=== PATIENT | male | born 1960 | race Two or more races ===

== ENCOUNTER 2018-02-07 11:28 | Outpatient (CLI) | payer OTHER | END 2018-02-07 11:42 | disposition home or self-care (01) | LOC: RAD 11:28 | DX: M05.29 Rheumatoid vasculitis with rheumatoid arthritis of multiple sites (principal); M15.0 Primary generalized (osteo)arthritis; M15.8 Other polyosteoarthritis; M20.5X1 Other deformities of toe(s) (acquired), right foot; M20.5X2 Other deformities of toe(s) (acquired), left foot ==

== ENCOUNTER 2021-07-23 09:01 | Outpatient (CLI) | payer OTHER | END 2021-07-23 09:02 | disposition home or self-care (01) | LOC: NUCLEAR 09:01 | PROVIDERS: ATTEND Internal Medicine Infectious Disease | DX: M81.0 Age-related osteoporosis without current pathological fracture (principal) ==

== ENCOUNTER 2022-02-04 10:21 | Outpatient (CLI) | payer OTHER | END 2022-02-04 10:28 | disposition home or self-care (01) | LOC: RAD 10:21 | PROVIDERS: ATTEND Internal Medicine Rheumatology | DX: I10 Essential (primary) hypertension (principal); E11.9 Type 2 diabetes mellitus without complications ==

== ENCOUNTER → 2022-02-12 | Outpatient (CLI) | payer OTHER | END | disposition home or self-care (01) | LOC: NUCLEAR 09:00 | PROVIDERS: ATTEND Internal Medicine | DX: G45.9 Transient cerebral ischemic attack, unspecified (principal) ==

== ENCOUNTER 2022-07-15 18:36 | Emergency (ER) | payer OTHER ==
[~2022-07-15] VITALS: Ht 170.2 cm; Wt 86.2 kg
[2022-07-15] MEDS ORDERED: ZOLOFT100 MG (19:03)
[2022-07-15] MEDS ORDERED: HUMIRA40 MG/0.2 (19:03)
[2022-07-15] MEDS ORDERED: ATIVAN2 M1 (19:03)
[2022-07-15] MEDS ORDERED: JULUCA 50-25 M1 EACH (19:03)
[2022-07-15] MEDS ORDERED: CRESTOR5 MG (19:03)
[2022-07-15] MEDS ORDERED: CIPRO500 MG PO (23:08)
== END 2022-07-16 00:40 | disposition home or self-care (01) ==
LOC: ER 18:36
DX: S90.852A Superficial foreign body, left foot, initial encounter (principal); X58.XXXA Exposure to other specified factors, initial encounter; Y93.89 Activity, other specified; Y92.89 Other specified places as the place of occurrence of the external cause; Y99.9 Unspecified external cause status; E03.9 Hypothyroidism, unspecified; B20 Human immunodeficiency virus [HIV] disease

== ENCOUNTER 2022-10-08 07:47 | Outpatient (CLI) | payer OTHER ==
[~2022-10-08 07:47] MED LIST: ATIVAN2 M1; CIPRO500 MG PO; CRESTOR5 MG; HUMIRA40 MG/0.2; JULUCA 50-25 M1 EACH; ZOLOFT100 MG
== END 2022-10-08 07:55 | disposition home or self-care (01) ==
LOC: RAD 07:47
PROVIDERS: ATTEND Internal Medicine Rheumatology
DX: S22.49XA Multiple fractures of ribs, unspecified side, initial encounter for closed fracture (principal)

== ENCOUNTER 2023-01-15 23:39 | Emergency (ER) | payer OTHER ==
[~2023-01-15] VITALS: Ht 167.6 cm; Wt 72.6 kg
[2023-01-16 02:37] LABS: HEMATOCRIT 35.3 % (39.0-48.0); HEMOGLOBIN 11.9 g/dL (13-16.00); MEAN CELL VOLUME 91.2 fL (80.0-100.00); MEAN CORPUSCULAR HEMOGLOBIN 30.8 pg (27.00-32.0); MEAN CORPUSCULAR HGB CONC 33.8 g/dl (32.0-36.0); PLATELET COUNT 305 K/uL (150-450); RED BLOOD COUNT 3.87 M/uL (4.00-6.00); RED CELL DISTRIBUTION WIDTH 14.5 % (11.5-14.5)
== END 2023-01-16 04:30 | disposition home or self-care (01) ==
LOC: ER 23:39
DX: S61.412A Laceration without foreign body of left hand, initial encounter (principal); W45.8XXA Other foreign body or object entering through skin, initial encounter; Y93.89 Activity, other specified; Y92.89 Other specified places as the place of occurrence of the external cause; Y99.9 Unspecified external cause status

== ENCOUNTER 2023-01-28 11:00 | Emergency (ER) | payer OTHER ==
[~2023-01-28] VITALS: Ht 170.2 cm; Wt 88.5 kg
== END 2023-01-28 11:47 | disposition home or self-care (01) ==
LOC: ER 11:00
DX: Z48.02 Encounter for removal of sutures (principal)

== ENCOUNTER 2023-02-04 10:57 | Emergency (ER) | payer OTHER ==
[~2023-02-04] VITALS: Ht 170.2 cm; Wt 74.8 kg
== END 2023-02-04 14:42 | disposition home or self-care (01) ==
LOC: ER
DX: Z48.02 Encounter for removal of sutures (principal)